=== PATIENT | female | born 1980 | race Caucasian/White ===

== ENCOUNTER 2016-05-22 22:47 | Emergency (ER) | payer OTHER ==
[2016-05-22 23:10] VITALS: BMI 26.5
[2016-05-22] MEDS ORDERED: TDAP Vaccine 0.5 mL Syr IM ONE (23:27)
[2016-05-22] MEDS ORDERED: Amoxicillin-Clav 875-125 mg Tab PO STA (23:27)
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
[2016-05-23 00:30] VITALS: BP 118/76; PULSE 88; RESP 16; TEMP 98.4; O2SAT 98
== END 2016-05-23 00:35 | disposition home or self-care (01) ==
LOC: ED 22:47
DX: S01.511A Laceration without foreign body of lip, initial encounter (principal); Y04.0XXA Assault by unarmed brawl or fight, initial encounter; Z23 Encounter for immunization; F17.210 Nicotine dependence, cigarettes, uncomplicated

== ENCOUNTER 2016-06-26 17:47 | Emergency (ER) | payer OTHER ==
[2016-06-26 17:53] VITALS: BMI 29.0
[2016-06-26 17:57] VITALS: BP 140/96; PULSE 90; RESP 18; TEMP 98.4; O2SAT 96
[2016-06-26] MEDS ORDERED: Naproxen 550 mg Tab PO STA (18:21)
--- NOTE | 2016-06-26 18:25 | ED PDOC ---
Arrival/HPI - General Historian: Patient - General Chief Complaint: Back Pain Time Seen by Provider: 06/26/16 18:21 - History of Present Illness Narrative History of Present Illness (Text): 06/26/16 18:24 Patient reports a one-week history of pain in the right buttock area, states that the pain is constant, nonradiating, worse with movement. States that she's been taking tramadol with improvement of her pain however she ran out of her medication. Patient reports history of prior back problems however this pain is different. States that she has seen her PMD regarding the following symptoms, was prescribed tramadol, and referred for physical therapy which she has not started yet at this time. Otherwise: (-) trauma, (-) injury, (-) urinary symptoms (-) paresthesias, (-) weakness, (-) acute bowel or bladder dysfunction , (-) fever. PMD Isaías (Fiona Millan PA-C) Past Medical History - Provider Review Nursing Documentation Reviewed: Yes - Infectious Disease Hx of Infectious Diseases: None - Pulmonary Hx Respiratory Disorders: No - Neurological Hx Neurological Disorder: No - HEENT Hx HEENT Disorder: No - Renal Hx Renal Disorder: No - Endocrine/Metabolic Hx Endocrine Disorders: No - Hematological/Oncological Hx Blood Disorders: No - Integumentary Hx Dermatological Disorder: No - Musculoskeletal/Rheumatological Hx Musculoskeletal Disorders: Yes Hx Back Pain: Yes - Gastrointestinal Hx Gastroesophageal Reflux: Yes - Psychiatric Hx Depression: No Hx Substance Use: No - Anesthesia Hx Anesthesia: No - Suicidal Assessment Feels Threatened In Home Enviroment: No Family/Social History - Physician Review Nursing Documentation Reviewed: Yes Family/Social History: No Known Family HX Smoking Status: Light Smoker < 10 Cigarettes Daily Hx Alcohol Use: Yes (social) Frequency of alcohol use: Socially Hx Substance Use: No Hx Substance Use Treatment: No Allergies/Home Meds Allergies/Adverse Reactions: Allergies No Known Allergies Allergy (Verified 06/26/16 17:52) Home Medications: Home Meds Medication Instructions Recorded Confirmed traMADol [Ultram] 25 mg PO DAILY 06/26/16 06/26/16 Review of Systems - Review of Systems Constitutional: Normal. absent: Fatigue, Weight Change, Fevers Respiratory: Normal. absent: SOB, Cough, Sputum Cardiovascular: Normal. absent: Chest Pain, Palpitations, Edema Gastrointestinal: Normal. absent: Abdominal Pain, Stool Changes, Appetite Changes Genitourinary Female: Normal. absent: Dysuria, Frequency, Hematuria Musculoskeletal: Normal, Back Pain. absent: Arthralgias, Neck Pain Skin: Normal. absent: Rash, Pruritis, Skin Lesions Physical Exam - Physical Exam Narrative Physical Exam (Text): 06/26/16 19:00 GENERAL APPEARANCE: Patient is awake, alert, oriented x 3, in mild painful distress. SKIN: Warm, dry; (-) cyanosis. EYES: (-) conjunctival pallor. ENMT: Mucous membranes moist. NECK: (-) tenderness, (-) stiffness, (-) lymphadenopathy. CHEST AND RESPIRATORY: (-) rales, (-) rhonchi, (-) wheezes; breath sounds equal bilaterally. HEART AND CARDIOVASCULAR: (-) irregularity; (-) murmur, (-) gallop. ABDOMEN AND GI: Soft; (-) tenderness; (-) palpable mass. BACK: (+) Paravertebral tenderness, (+) point tenderness at the right sciatic notch, (-) spasm, (-) direct bony tenderness, (-) deformity. Straight leg raising (-) bilaterally. EXTREMITIES: (-) deformity. Distal pulses good bilaterally. NEURO AND PSYCH: Mental status as above. Intact sensation bilaterally; normal strength in extension of the knees, plantar and dorsiflexion of the toes. DTRs symmetric. (Monty GOODWIN,Fiona Parrish) Vital Signs Temp Pulse Resp BP Pulse Ox 06/26/16 17:55 98.4 F 90 18 140/96 H 96 Medical Decision Making ED Course and Treatment: 06/26/16 19:00 36 yo F with history of prior back pain, presents with one-week history of sciatica. Patient medicated with tramadol, naproxen and Flexeril by mouth. Patient advised to continue Rx medications, rest her back, avoid heavy lifting, pushing, lifting. Strongly advised to go for physical therapy as directed by her PMD. Based on history and exam, plan will be for outpatient follow-up with PMD. Prescription provided. Patient states she fully agrees with and understands discharge instructions. States that she agrees with the plan and disposition. Verbalized and repeated discharge instructions and plan. I have given the patient opportunity to ask any additional questions. Follow up with primary care physician in 1-2 days without fail. Advised to take medication as prescribed. Return to the emergency room at any time for any new or worsening symptoms. (Monty GOODWIN,Fiona Parrish) - Medication Orders Current Medication Orders: Discontinued Medications Cyclobenzaprine HCl (Flexeril) 10 mg PO STAT STA Stop: 06/26/16 18:22 Last Admin: 06/26/16 18:33 Dose: 10 mg Naproxen (Anaprox Ds) 550 mg PO ONCE STA Stop: 06/26/16 18:22 Last Admin: 06/26/16 18:33 Dose: 550 mg Tramadol HCl (Ultram) 50 mg PO STAT STA Stop: 06/26/16 18:22 Last Admin: 06/26/16 18:33 Dose: 50 mg - PA / PERFORMING ARTIST / Resident Statement /DO has reviewed & agrees with the documentation as recorded. Disposition/Present on Arrival - Present on Arrival Any Indicators Present on Arrival: No History of DVT/PE: No History of Uncontrolled Diabetes: No Urinary Catheter: No History of Decub. Ulcer: No History Surgical Site Infection Following: None - Disposition Have Diagnosis and Disposition been Completed?: Yes Disposition Time: 18:20 Patient Plan: Discharge - Disposition Diagnosis: Sciatica Disposition: HOME/ ROUTINE Condition: STABLE Discharge Instructions (ExitCare): Sciatica (ED) Print Language: CYPRIOT Additional Instructions: Thank you for letting us take care of you today. You were treated for aortic. The emergency medical care you received today was directed at your acute symptoms. If you were prescribed any medication, please fill it and take as directed. It may take several days for your symptoms to resolve. Return to the Emergency Department if your symptoms worsen, do not improve, or if you have any other problems. Please contact your doctor in 2 days for re-evaluation and follow up. Bring any paperwork you were given at discharge with you along with any medications you are taking to your follow up visit. Our treatment cannot replace ongoing medical care by a primary care provider (PCP) outside of the emergency department. Thank you for allowing the [facility] team to be part of your care today. Prescriptions: Cyclobenzaprine [Cyclobenzaprine HCl] 10 mg PO TID #15 tab Meloxicam [Mobic] 15 mg PO DAILY #20 tab traMADol [Ultram] 50 mg PO TID #15 tab
== END 2016-06-26 18:45 | disposition home or self-care (01) ==
LOC: ED 17:47
DX: M54.30 Sciatica, unspecified side (principal)

== ENCOUNTER 2017-02-21 13:30 | Emergency (ER) | payer OTHER ==
[2017-02-21 13:31] VITALS: BMI 29.0
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
[2017-02-21 17:38] VITALS: BP 132/88; PULSE 99; TEMP 98.9
[2017-02-21 17:39] VITALS: RESP 18; O2SAT 99
== END 2017-02-21 17:38 | disposition home or self-care (01) ==
LOC: ED 13:30
DX: M54.2 Cervicalgia (principal); M54.9 Dorsalgia, unspecified; M25.561 Pain in right knee
CPT/HCPCS: 73562; 96372; 99284; J1885